=== PATIENT | male | born 1980 ===

== ENCOUNTER 2024-03-11 12:46 | Emergency (ER) | payer OTHER, SELFPAY ==
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
[2024-03-11 12:53] VITALS: BP 141/90; PULSE 80; RESP 18; TEMP 36.3; O2SAT 97; BMI 32.9
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
[2024-03-11 15:33] VITALS: BP 131/95; PULSE 80; RESP 16; TEMP 37.1; O2SAT 96
[2024-03-11 15:41] VITALS: BP 131/95; PULSE 80; RESP 16; TEMP 37.1; O2SAT 96
== END 2024-03-11 15:42 | disposition home or self-care (01) ==
PROVIDERS: Emergency Provider Emergency Medicine
DX: M25.462 Effusion, left knee (principal); S70.02XA Contusion of left hip, initial encounter; S16.1XXA Strain of muscle, fascia and tendon at neck level, initial encounter; S50.312A Abrasion of left elbow, initial encounter; S80.212A Abrasion, left knee, initial encounter; V03.00XA Pedestrian on foot injured in collision with car, pick-up truck or van in nontraffic accident, initial encounter; Y93.01 Activity, walking, marching and hiking; Y92.414 Local residential or business street as the place of occurrence of the external cause; Y99.9 Unspecified external cause status
CPT/HCPCS: 73502; 73562; 99283